=== PATIENT | male | born 1990 | race Caucasian/White ===

== ENCOUNTER 2016-12-11 12:11 | Emergency (ER) | payer OTHER ==
[~2016-12-11] VITALS: Ht 177.8 cm; Wt 70.5 kg
[~2016-12-11 12:11] MED LIST: BACTRIM DS 8001 TAB; CEPHALEXIN500 M1; NO HOME MEDICATIONS; NORCO 325 MG-51 TAB PO; ZITHROMAX 250M250 MG PO
[2016-12-11 12:26] VITALS: BP 133/71; PULSE 64; TEMP 98.6
== END 2016-12-11 13:34 | disposition home or self-care (01) ==
LOC: COL.ER 12:11
DX: S61.411A Laceration without foreign body of right hand, initial encounter (principal); W22.8XXA Striking against or struck by other objects, initial encounter